=== PATIENT | male | born 1965 | race Caucasian/White ===

== ENCOUNTER 2023-05-22 08:40 | Day surgery (SDC) | payer MEDICARE, MEDICAID, SELFPAY ==
[2023-05-22 08:46] VITALS: BP 155/81; PULSE 60; RESP 18; TEMP 36.8; O2SAT 94
[2023-05-22] MEDS: Tropicam./Phenyleph. (1/2.5%) 5 ML BTL OD ×3 (09:06→09:21)
--- NOTE | 2023-05-22 09:06 | W.ANESPRE ---
General Info Date of Service Date Performed: 05/22/23 Height: 5 ft 9 in Weight: 90.718 kg Body Mass Index (BMI): 29.5 Surgical Procedure: Operation Date: 05/22/23 10:40 Proposed Procedure Side Surgeon p Cataract Extraction with IOL Implant Right Gutierrez Marquez MD Meds Allergies and Home Medications Allergies Allergy/AdvReac Type Severity Reaction Status Date / Time amoxicillin Allergy Intermediate Other (See Unverified 05/20/23 15:04 Comment) diphenhydramine Allergy Intermediate Hallucinati Unverified 05/20/23 15:04 ons fenofibrate Allergy Intermediate Other (See Unverified 05/20/23 15:04 Comment) Penicillins Allergy Intermediate Other (See Unverified 05/20/23 15:04 Comment) Home Medication Medication Instructions Recorded albuterol sulfate 90 mcg/actuation 2 puff inhalation Q4H PRN 05/20/23 aerosol inhaler (Ventolin HFA) amlodipine 10 mg tablet 10 mg PO DAILY 05/20/23 apixaban 5 mg tablet (Eliquis) 5 mg PO BID 05/20/23 atorvastatin 40 mg tablet 40 mg PO DAILY 05/20/23 baclofen 20 mg tablet 20 mg PO BID 05/20/23 cholecalciferol (vitamin D3) 25 50 mcg PO DAILY 05/20/23 mcg (1,000 unit) capsule (Vitamin D3) clopidogrel 75 mg tablet 75 mg PO DIRECTED 05/20/23 cyanocobalamin (vitamin B-12) 1,000 mcg PO DAILY 05/20/23 1,000 mcg tablet (Vitamin B-12) docusate sodium 100 mg capsule 200 mg PO DAILY 05/20/23 furosemide 20 mg tablet 20 mg PO DAILY 05/20/23 icosapent ethyl 1 gram capsule 2 g PO DAILY 05/20/23 (Vascepa) insulin aspart U-100 100 unit/mL 30 - 42 sliding scale dose subcut 05/20/23 (3 mL) subcutaneous pen (Novolog DIRECTED FlexPen U-100 Insulin aspart) insulin degludec 200 unit/mL (3 120 unit subcut DAILY 05/20/23 mL) subcutaneous pen (Tresiba FlexTouch U-200 insulin) levothyroxine 100 mcg tablet 100 mcg PO DAILY 05/20/23 levothyroxine 88 mcg tablet 88 mcg PO DAILY 05/20/23 lisinopril 40 mg tablet 40 mg PO DAILY 05/20/23 loratadine 10 mg tablet 10 mg PO DAILY 05/20/23 metformin 500 mg tablet 500 mg PO DIRECTED 05/20/23 metoprolol tartrate 50 mg tablet 50 mg PO BID 05/20/23 mirabegron 25 mg tablet,extended 25 mg PO DAILY 05/20/23 release 24 hr (Myrbetriq) pantoprazole 40 mg tablet,delayed 40 mg PO DAILY 05/20/23 release Current Visit Medications: Current Medications Generic Name Dose Route Start Last Admin Trade Name Freq PRN Reason Stop Dose Admin Acetaminophen 1,000 mg 05/22/23 06:00 Acetaminophen 500 Mg Tab PO 06/21/23 05:59 Q4H PRN PRN Balanced Salt Solution 500 ml 05/22/23 06:00 Balanced Salt Soln.-Plus 500 Ml Bag OP 06/21/23 05:59 DIRECTED [facility] Miscellaneous Medication 0 ml 05/22/23 06:00 Prednisolone 1%, Moxifloxacin 0.5%, Nepafenac 0.1% 5ml Btl OD 06/21/23 05:59 DIRECTED [facility] Miscellaneous Medication 0 ml 05/22/23 06:00 Tropicam./Phenyleph. (1/2.5%) 5 Ml Btl OD 06/21/23 05:59 DIRECTED [facility] Tetracaine HCl 0 ml 05/21/23 09:00 Tetracaine 0.5% 5 Ml Btl OD 06/20/23 08:59 DIRECTED [facility] PFSH Active Problems Active Problems: Problem Status Onset Code Posterior subcapsular age-related cataract, right eye H25.041 Nuclear age-related cataract, right eye H25.11 Medical History Medical History Acquired dysarthria Acute pancreatitis Acute thoracic back pain Anemia Asthenia Asthma Candidiasis of skin Cerebral infarction Cerebrovascular accident Cholecystitis Chronic constipation Chronic musculoskeletal pain Coronary arteriosclerosis Cytopenia Edema GERD without esophagitis Hemiparesis Hypertensive disorder Hypothyroidism Late effects of cerebrovascular disease Left hemiparesis Mixed hyperlipidemia Pedal edema Postoperative intra-abdominal abscess Respiratory failure Right hemiparesis Sleep pattern disturbance Triplegia Type II diabetes mellitus Vertebrobasilar artery syndrome Vitamin D deficiency Surgical History Surgical History H/O heart artery stent x2 2009 Hx laparoscopic cholecystectomy Tobacco Smoking/Tobacco Use Status: Former Tobacco Use Alcohol Alcohol Intake: never Substance Use Substance use: Never Substance use type: does not use Vital Signs and Lab Results Vital Signs Most Recent Vital Signs in EMR: Most Recent Vital Signs Temp Pulse Resp BP Pulse Ox 36.8 C 60 18 155/81 H 94 05/22/23 08:46 05/22/23 08:46 05/22/23 08:46 05/22/23 08:46 05/22/23 08:46 Lab Results Blood Type / Crossmatch: No Data to Display Complete Blood Count: No Data to Display Complete Metabolic Panel: No Data to Display Liver Function Panel: No Data to Display Coagulation Panel: No Data to Display Cardiac Panel: No Data to Display Arterial Blood Gas: No Data to Display Venous Blood Gas: No Data to Display Pancreas Panel: No Data to Display Thyroid Panel: No Data to Display Infectious Disease: No Data to Display Blood Cultures: No Data to Display Toxicology Panel: No Data to Display Anesthesia Assessment and Plan Anesthesia History Personal History: No History of Anesthesia Complications Family History: No Family History of Anesthesia Complications Exercise Tolerance Exercise Tolerance: Metabolic Equivalents<4 Pertinent Negatives Pertinent Negatives: No Symptoms of GERD and No Major Cardiovascular Symptoms or Complaints Cardiac & Pulmonary Exam Cardiac Exam: Normal S1/S2 Heart Sounds Pulmonary Exam: Rhonchi Present (chronic congestion/cough due to 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) Implantable Cardiac Device Does patient have a Pacemaker or an ICD?: No Airway Exam Known Difficult Airway: No Mallampati Class: 1 Mouth Opening: Normal (> 3cm) Thyromental Distance: Greater than 3 cm Neck Range of Motion: Limited ROM Neck Circumference: Normal Teeth Condition: Removable Dentures/Plates Upper, Removable Dentures/Plates Lower and Edentulous ASA Classification ASA Score: ASA 3 Emergency Case?: No NPO Status NPO Status: NPO Clears >2 hours, Solids >8 hours Anesthesia Plan Resuscitation Status: Full Code Anesthesia Technique: MAC Anesthesia Airway Planned: Natural Airway Monitors Used: Standard Monitors Preoperative Comments:: Blood sugar 298
[2023-05-22 09:37] VITALS: BMI 29.5
[2023-05-22] MEDS: Balanced Salt Soln.-PLUS 500 ML BAG OP (09:51)
[2023-05-22] MEDS: Lidocaine 1% Pres-Free 5 ML VIAL (09:54)
[2023-05-22] MEDS: Duovisc Viscoelastic System EACH 1 EACH (09:54)
[2023-05-22] MEDS: Phenylephrine/Lidocaine (15/10) MG/ML 1 ML VIAL (09:56)
[2023-05-22] MEDS: Povidone-Iodine Ophth 30 ML BTL (09:58)
[2023-05-22 10:14] VITALS: BP 151/79; PULSE 50; RESP 18; TEMP 36.6; O2SAT 97
--- NOTE | 2023-05-22 10:14 | W.PM.DSUDISC ---
Date of service: 05/22/23 Time of Service: 10:14 Discharge Plan Disposition Patient Disposition: Home Discharge Details Attending Provider: Gutierrez Marquez Primary Care Provider: Gokul Oconnor Home Meds and New Rx's Prescriptions: No Action atorvastatin 40 mg tablet 40 mg PO DAILY Patient Comments: TAKE ONE TABLET BY MOUTH EVERY DAY metformin 500 mg tablet 500 mg PO DIRECTED cyanocobalamin (vitamin B-12) [Vitamin B-12] 1,000 mcg tablet 1,000 mcg PO DAILY clopidogrel 75 mg tablet 75 mg PO DIRECTED baclofen 20 mg tablet 20 mg PO BID levothyroxine 100 mcg tablet 100 mcg PO DAILY levothyroxine 88 mcg tablet 88 mcg PO DAILY Patient Comments: TAKE ONE TABLET BY MOUTH EVERY DAY amlodipine 10 mg tablet 10 mg PO DAILY pantoprazole 40 mg tablet,delayed release (DR/EC) 40 mg PO DAILY metoprolol tartrate 50 mg tablet 50 mg PO BID docusate sodium 100 mg capsule 200 mg PO DAILY Patient Comments: TAKE ONE CAPSULE BY MOUTH TWICE A DAY furosemide 20 mg tablet 20 mg PO DAILY Patient Comments: TAKE ONE TABLET BY MOUTH EVERY DAY albuterol sulfate [Ventolin HFA] 90 mcg/actuation Hfa Aerosol Inhaler 2 puff INHALATION Q4H PRN lisinopril 40 mg tablet 40 mg PO DAILY loratadine 10 mg Tablet 10 mg PO DAILY cholecalciferol (vitamin D3) [Vitamin D3] 25 mcg (1,000 unit) capsule 50 mcg PO DAILY Patient Comments: TAKE TWO CAPSULES BY MOUTH EVERY DAY insulin aspart U-100 [Novolog FlexPen U-100 Insulin] 100 unit/mL (3 mL) insulin pen 30 - 42 sliding scale dose SUBCUT DIRECTED Patient Comments: INJECT 30 TO 42 UNITS SUBCUTANEOUSLY THREE TIMES A DAY WITH MEALS Myrbetriq 25 mg tablet extended release 24 hr 25 mg PO DAILY icosapent ethyl [Vascepa] 1 gram Capsule 2 g PO DAILY Eliquis 5 mg tablet 5 mg PO BID insulin degludec [Tresiba FlexTouch U-200] 200 unit/mL (3 mL) insulin pen 120 unit SUBCUT DAILY Patient Comments: INJECT 120 UNITS SUBCUTANEOUSLY DAILY Discharge Instructions Stand Alone Forms: Post-op Topical Cataract, Press Ganey (DSU) Discharge Orders Discharge Orders: Discharge Order (Routine); Ordered 05/22/23 Ordered By: Gutierrez J Jimmy DS: Diagnosis Discharge Diagnosis (1) Posterior subcapsular age-related cataract, right eye: Status: Resolved (2) Nuclear age-related cataract, right eye: Status: Resolved
--- NOTE | 2023-05-22 10:15 | ROE_ITS ---
Date of service: 05/22/23 Time of Service: 10:15 Operative Note Operative Note DATE OF PROCEDURE: 05/22/23 PRE-OP DIAGNOSIS: Nuclear/posterior subcapsular cataract, right eye POST-OP DIAGNOSIS: same PROCEDURE: Cataract extraction using phacoemulsification with intraocular lens implant, right eye SURGEON: Gutierrez Marquez ANESTHESIA TYPE: Local By Surgeon and MAC Refer to Anesthesia Record ESTIMATED BLOOD LOSS: 0 PATHOLOGY: none sent COMPLICATIONS: None Patient was transported to: same day Patient's condition: stable Implants: Joey [employer] Joey Tecnis Eyhance [id number] Indications: Progressive visual loss due to cataract, right eye Procedure Description: CATARACT SURGERY OPERATIVE REPORT PREOPERATIVE DIAGNOSIS: 1. Nuclear/posterior subcapsular cataract, right eye POSTOPERATIVE DIAGNOSIS: Same OPERATION: 1. Cataract extraction using phacoemulsification with posterior chamber intraocular lens implant, right eye. IOL: IOL Building Inspection Engineer/Model: Joey & Joey Tecnis Eyhance [id number] IOL Power: + 19.5 diopters IOL Serial Number: [id number] Optic Diameter: 6.0mm Haptic/Overall Diameter: 13.0mm PHACO INFO: Amandeep [employer] Vision System with OZil and Active [employer]uidics Cumulative Dispersed Energy (CDE): 11.26 seconds SURGEON: Gutierrez Marquez MD, OLRE ANESTHESIA: Monitored Anesthesia Care (MAC), with local sub-tenon's anesthetic infiltration COMPLICATIONS: None SPECIMENS: None INDICATIONS FOR PROCEDURE: The patient is a 57-year-old male with history of diminished visual acuity in his right eye secondary to the development of nuclear and posterior subcapsular cataract. He is significantly symptomatic that he desires cataract surgery and attempt to improve and maximize his vision. See office notes for detailed information. PROCEDURE: The correct surgical eye was identified and marked as the right eye and the pupil was dilated in the preoperative area using mydriatics and cycloplegics. The dilated pupil size was 6.0 mm. The patient elected to proceed without oral sedation. The patient was brought to the operating room where cardiopulmonary monitoring was instituted and surgical time-out was performed, confirming the correct operative eye and IOL power. Topical anesthesia was administered and ophthalmic povidone-iodine 5% was instilled into the conjunctival fornices. The dakota-ocular area was prepped with Betadine 10% solution and draped in the usual sterile fashion for intraocular surgery, including an aperture drape. A Tegaderm transparent film dressing was cut in half and used to cover the lashes and lid margins. Care was taken to sequester the lashes and lid margins under the Tegaderm dressing. A lid speculum was placed between the lids of the operative eye and the Amandeep [employer] Revalia operating microscope was maneuvered into position. Matt scissors were then used to make a conjunctival buttonhole approximately 6mm posterior to the limbus in the inferonasal quadrant. Blunt dissection was carried out to expose bare sclera, and a blunt-tipped sub-tenon?s anesthesia cannula was introduced and passed posteriorly along the globe where non- preserved plain lidocaine was injected into posterior sub-Tenon?s space. A sideport knife was used to make a paracentesis port. Intraocular phenylephrine/lidocaine was injected into the anterior chamber. The anterior chamber was filled with viscoelastic. A keratome knife was used to construct a 2-plane clear corneal tunnel extending 2.0mm into clear cornea. A flap was raised on the anterior capsule and capsulorhexis forceps were used to complete a continuous curvilinear capsulorhexis of 5.0 mm. Balanced salt solution was then used to perform cortical cleaving hydrodissection and nuclear hydrodelineation until the lens could be freely rotated within the capsular bag. The lens nucleus was then disassembled and r emoved within the capsular bag and iris plane using phacoemulsification. There was a moderate amount of posterior pressure, additional dispersive viscoelastic was injected into the anterior chamber intermittently to protect the corneal endothelium. Residual cortical material was removed using the I/A handpiece. The posterior capsule was carefully polished to remove as much residual lens epithelial cells as safely possible. The capsular bag was then inflated and the anterior chamber deepened with cohesive viscoelastic. The lens implant described above was inserted into the capsular bag using the Joey and Meliton Simplicity pre-loaded injector. A Kuglen hook was used to dial the IOL into position. Residual viscoelastic was then removed first from posterior to the IOL, then from the anterior chamber using the I/A handpiece. The lens implant was noted to center nicely within the capsular bag. The incisions were stromally hydrated, and the anterior chamber was reformed using BSS. Then 0.5cc of moxifloxacin 1.0mg/ml were injected into the capsular bag and anterior chamber. The incisions were checked with a Weck spear and found to be secure. Several drops of ophthalmic povidone-iodine 5% were then applied to the eye followed by two drops of Imprimis combination prednisolone/moxifloxacin/nepafenac solution. The drapes were removed and a clear plastic protective eye shield was placed over the eye. The patient was then returned to [facility] Day Surgery in stable condition.
--- NOTE | 2023-05-22 10:52 | W.ANESPOSTOP ---
Postoperative Evaluation Date, Time and Location Date Performed: 05/22/23 Time Performed: 10:16 Patient Location: Day Surgery Unit Vital Signs Most Recent Imported Vital Signs: Most Recent Vital Signs Temp Pulse Resp BP Pulse Ox 36.6 C 50 L 18 151/79 H 97 05/22/23 10:14 05/22/23 10:14 05/22/23 10:14 05/22/23 10:14 05/22/23 10:14 Pain Score Most Recent Pain Score: Most Recent Pain Score Pain Level 0 05/22/23 10:14 Assessment Mental Status: Awake (Alert & Oriented to Patient Baseline) Airway and Respiratory Function: Patent airway with normal (patient baseline) respiratory exam Cardiovascular Function: Hemodynamically Stable Hydration Status: Adequately Hydrated Nausea & Vomiting: No Nausea or Vomiting Pain: Pt. Denies Any Pain Peripheral Nerve Block: Patient did not receive a nerve block
== END 2023-05-22 10:40 | disposition home or self-care (01) ==
LOC: SUR 08:43
PROVIDERS: PCP Orthopaedic Surgery Adult Reconstructive Orthopaedic Surgery; Visit Provider Ophthalmology
PROC: (CPT 66984; principal; 2023-05-22 10:30)
DX: H25.041 Posterior subcapsular polar age-related cataract, right eye (principal); H25.11 Age-related nuclear cataract, right eye; K21.9 Gastro-esophageal reflux disease without esophagitis
CPT/HCPCS: 66984; V2632

== ENCOUNTER 2024-05-09 18:22 | Outpatient (REF) | payer SELFPAY ==
[2024-05-09 20:13] LABS: Abs Immature Grans 0.02 10^3/uL (0.0-0.06); Absolute Basophil Count 0.09 10^3/uL (0.0-0.2); Absolute Eosinophil Count 0.46 10^3/uL (0.0-0.7); Absolute Lymphocyte Count 0.76 10^3/uL (1.2-3.4); Absolute Monocyte Count 0.47 10^3/uL (0.1-0.8); Absolute Neutrophil Count 3.57 10^3/uL (1.2-6.7); Basophils % 1.7 %; Eosinophils % 8.6 %; HCT 34.5 % (40.0-50.0); Immature Grans % 0.4 %; Lymphocytes % 14.2 %; MCH 31.3 pg (27.0-33.0); MCHC 31.9 % (32.0-36.0); MCV 98 fL (80-95); MPV 9.5 fL (8.0-11.0); Monocytes % 8.8 %; Neutrophils % 66.3 %; Platelet Count 144 10^3/uL (130-400); RBC 3.51 10^6/uL (4.36-5.78); RDW 17.1 % (11.8-14.1); RDW-SD 62.5 fL; WBC 5.37 10^3/uL (4.4-10.8)
[2024-05-09 20:50] LABS: Hemoglobin A1C 5.7 % (<5.7)
[2024-05-09 21:29] LABS: Iron 37 ug/dL (65-175); Total Iron Binding Capacity 222 ug/dL (250-450); Transferrin Sat 17 % (20-55)
[2024-05-09 21:57] LABS: ALT 42 U/L (16-63); AST 31 U/L (15-37); Albumin 3.4 g/dL (3.4-5.0); Alkaline Phosphatase 290 U/L (46-116); BUN 57 mg/dL (7-18); Bilirubin, Total 0.81 mg/dL (0.2-1.0); CREATININE 2.6 mg/dL (0.70-1.30); Calcium 9.5 mg/dL (8.5-10.1); Chloride 98 mmol/L (98-107); Estimated GFR 27.72 (mL/min/1.73m2); Ferritin 527 ng/mL (26-388); Glucose 139 mg/dL (74-106); Magnesium 2.2 mg/dL (1.8-2.4); Potassium 4.7 mmol/L (3.5-5.1); Sodium 138 mmol/L (136-145); TSH (W/Ref FT4) 1.18 uIU/mL (0.36-3.74); Total Protein 6.8 g/dL (6.4-8.2); Vitamin B12 916 pg/mL (193-986); Vitamin D 25 Total 33.5 ng/mL (30-100)
[2024-05-09 21:58] LABS: Folate > 20.0 ng/mL (8.6-20.0)
[2024-05-09 22:30] LABS: NT-proBNP 9697 pg/mL (<300)
== END 2024-05-09 18:23 | disposition home or self-care (01) ==
LOC: LBN 18:22
PROVIDERS: PCP Orthopaedic Surgery Adult Reconstructive Orthopaedic Surgery; Visit Provider Nurse Practitioner Gerontology
DX: R73.09 Other abnormal glucose (principal)
CPT/HCPCS: 80053; 82306; 82607; 82728; 82746; 83036; 83540; 83550; 83735; 83880; 84443; 85025

== ENCOUNTER 2024-05-19 18:27 | Outpatient (REF) | payer SELFPAY ==
[2024-05-19 20:50] LABS: Abs Immature Grans 0.01 10^3/uL (0.0-0.06); Absolute Basophil Count 0.09 10^3/uL (0.0-0.2); Absolute Eosinophil Count 0.63 10^3/uL (0.0-0.7); Absolute Lymphocyte Count 0.89 10^3/uL (1.2-3.4); Absolute Monocyte Count 0.41 10^3/uL (0.1-0.8); Absolute Neutrophil Count 3.43 10^3/uL (1.2-6.7); Basophils % 1.6 %; Eosinophils % 11.5 %; HCT 30.3 % (40.0-50.0); HGB 10.1 g/dL (13.5-17.5); Immature Grans % 0.2 %; Lymphocytes % 16.3 %; MCH 30.9 pg (27.0-33.0); MCHC 33.3 % (32.0-36.0); MCV 93 fL (80-95); MPV 9.7 fL (8.0-11.0); Monocytes % 7.5 %; Neutrophils % 62.9 %; Platelet Count 193 10^3/uL (130-400); RBC 3.27 10^6/uL (4.36-5.78); RDW 15.9 % (11.8-14.1); RDW-SD 53.6 fL; WBC 5.46 10^3/uL (4.4-10.8)
[2024-05-19 21:06] LABS: ALT 62 U/L (16-63); AST 45 U/L (15-37); Albumin 3.4 g/dL (3.4-5.0); Alkaline Phosphatase 310 U/L (46-116); Anion Gap 4.9 mmol/L (3-11); BUN 27 mg/dL (7-18); Bilirubin, Total 0.73 mg/dL (0.2-1.0); CO2 33.1 mmol/L (21.0-32.0); Calcium 9.7 mg/dL (8.5-10.1); Chloride 99 mmol/L (98-107); Estimated GFR 37.97 (mL/min/1.73m2); Glucose 71 mg/dL (74-106); NT-proBNP 6921 pg/mL (<300); Potassium 3.9 mmol/L (3.5-5.1); Sodium 137 mmol/L (136-145); Total Protein 6.8 g/dL (6.4-8.2)
== END 2024-05-19 18:28 | disposition home or self-care (01) ==
LOC: LBN 18:27
PROVIDERS: PCP Orthopaedic Surgery Adult Reconstructive Orthopaedic Surgery; Visit Provider Nurse Practitioner Gerontology
DX: I13.2 Hypertensive heart and chronic kidney disease with heart failure and with stage 5 chronic kidney disease, or end stage renal disease (principal)
CPT/HCPCS: 80053; 83880; 85025

== ENCOUNTER 2024-05-30 19:22 | Outpatient (REF) | payer SELFPAY ==
[2024-05-30 19:42] LABS: Abs Immature Grans 0.01 10^3/uL (0.0-0.06); Absolute Basophil Count 0.06 10^3/uL (0.0-0.2); Absolute Eosinophil Count 0.45 10^3/uL (0.0-0.7); Absolute Lymphocyte Count 0.61 10^3/uL (1.2-3.4); Absolute Monocyte Count 0.42 10^3/uL (0.1-0.8); Absolute Neutrophil Count 3.18 10^3/uL (1.2-6.7); Basophils % 1.3 %; Eosinophils % 9.5 %; HCT 29.8 % (40.0-50.0); HGB 10.1 g/dL (13.5-17.5); Immature Grans % 0.2 %; Lymphocytes % 12.9 %; MCH 31.4 pg (27.0-33.0); MCHC 33.9 % (32.0-36.0); MCV 93 fL (80-95); Monocytes % 8.9 %; Neutrophils % 67.2 %; Platelet Count 129 10^3/uL (130-400); RBC 3.22 10^6/uL (4.36-5.78); RDW-SD 53.8 fL; WBC 4.73 10^3/uL (4.4-10.8)
[2024-05-30 20:05] LABS: ALT 47 U/L (16-63); AST 40 U/L (15-37); Albumin 3.5 g/dL (3.4-5.0); Alkaline Phosphatase 220 U/L (46-116); Anion Gap 3.7 mmol/L (3-11); BUN 11 mg/dL (7-18); Bilirubin, Total 1.03 mg/dL (0.2-1.0); CO2 33.3 mmol/L (21.0-32.0); CREATININE 1.2 mg/dL (0.70-1.30); Calcium 9.3 mg/dL (8.5-10.1); Chloride 99 mmol/L (98-107); Glucose 95 mg/dL (74-106); NT-proBNP 11318 pg/mL (<300); Potassium 3.8 mmol/L (3.5-5.1); Sodium 136 mmol/L (136-145); Total Protein 7.1 g/dL (6.4-8.2)
== END 2024-05-30 19:23 | disposition home or self-care (01) ==
LOC: LBN 19:22
PROVIDERS: PCP Orthopaedic Surgery Adult Reconstructive Orthopaedic Surgery; Visit Provider Nurse Practitioner Gerontology
DX: I50.43 Acute on chronic combined systolic (congestive) and diastolic (congestive) heart failure (principal)
CPT/HCPCS: 80053; 83880; 85025

== ENCOUNTER 2024-06-02 18:03 | Outpatient (REF) | payer MEDICARE, MEDICAID, SELFPAY ==
[2024-06-02 18:36] LABS: Abs Immature Grans 0.01 10^3/uL (0.0-0.06); Absolute Basophil Count 0.08 10^3/uL (0.0-0.2); Absolute Eosinophil Count 0.61 10^3/uL (0.0-0.7); Absolute Lymphocyte Count 0.84 10^3/uL (1.2-3.4); Absolute Monocyte Count 0.53 10^3/uL (0.1-0.8); Absolute Neutrophil Count 2.73 10^3/uL (1.2-6.7); Basophils % 1.7 %; Eosinophils % 12.7 %; HGB 9.8 g/dL (13.5-17.5); Immature Grans % 0.2 %; Lymphocytes % 17.5 %; MCH 31.7 pg (27.0-33.0); MCHC 32.7 % (32.0-36.0); MPV 9.7 fL (8.0-11.0); Neutrophils % 56.9 %; Platelet Count 134 10^3/uL (130-400); RBC 3.09 10^6/uL (4.36-5.78); RDW 16.7 % (11.8-14.1); RDW-SD 58.5 fL
[2024-06-02 18:41] LABS: MCV 97 fL (80-95)
[2024-06-02 19:03] LABS: ALT 40 U/L (16-63); AST 30 U/L (15-37); Albumin 3.4 g/dL (3.4-5.0); Alkaline Phosphatase 211 U/L (46-116); Anion Gap 6.2 mmol/L (3-11); BUN 24 mg/dL (7-18); Bilirubin, Total 0.71 mg/dL (0.2-1.0); CO2 31.8 mmol/L (21.0-32.0); CREATININE 1.9 mg/dL (0.70-1.30); Calcium 10.2 mg/dL (8.5-10.1); Chloride 99 mmol/L (98-107); Estimated GFR 40.38 (mL/min/1.73m2); Glucose 114 mg/dL (74-106); NT-proBNP 9700 pg/mL (<300); Potassium 4.2 mmol/L (3.5-5.1); Sodium 137 mmol/L (136-145); Total Protein 6.9 g/dL (6.4-8.2)
== END 2024-06-02 18:04 | disposition home or self-care (01) ==
LOC: LBN 18:03
PROVIDERS: PCP Orthopaedic Surgery Adult Reconstructive Orthopaedic Surgery; Visit Provider Nurse Practitioner Gerontology
DX: J18.9 Pneumonia, unspecified organism (principal); I50.9 Heart failure, unspecified
CPT/HCPCS: 80053; 83880; 85025

== ENCOUNTER 2024-06-03 00:52 | Outpatient (REF) | payer SELFPAY ==
--- NOTE | 2024-06-03 | DI.RAD_ITS ---
Exam(s) XR CHEST 2V PA LATERAL EXAM: XR CHEST 2V PA LATERAL CLINICAL HISTORY: PULMONARY EDEMA,ASPIRATION TECHNIQUE: 2D digital imaging was performed. Two views. COMPARISON: No exams were available for comparison FINDINGS: HEART: Normal size. Central venous catheter with tip in right atrium. Cardiac monitoring device Aorta: No mildly tortuous. PULMONARY VASCULATURE: Normal. MEDIASTINUM: Unremarkable. LUNGS: Clear. No evidence of pulmonary edema or focal infiltrate. PLEURAL SPACE: No pleural effusion or pneumothorax. BONE:Unremarkable for age. SOFT TISSUES: Unremarkable. IMPRESSION: No acute abnormality. DATA REPOSITORY: RADIATION DOSE DELIVERED:
== END 2024-06-03 01:12 ==
LOC: DI 00:52
PROVIDERS: PCP Orthopaedic Surgery Adult Reconstructive Orthopaedic Surgery; Visit Provider Nurse Practitioner Gerontology
DX: R91.8 Other nonspecific abnormal finding of lung field (principal)
CPT/HCPCS: 71046

== ENCOUNTER 2024-06-03 15:02 | Outpatient (REF) | payer MEDICARE, MEDICAID, SELFPAY ==
[2024-06-03 08:30] LABS: CREATININE 2.3 mg/dL (0.70-1.30); Estimated GFR 32.11 (mL/min/1.73m2); Potassium 3.9 mmol/L (3.5-5.1)
== END 2024-06-03 15:03 | disposition home or self-care (01) ==
LOC: LBN 15:02
PROVIDERS: PCP Orthopaedic Surgery Adult Reconstructive Orthopaedic Surgery; Visit Provider Internal Medicine Nephrology
DX: N17.9 Acute kidney failure, unspecified (principal)
CPT/HCPCS: 82565; 84132

== ENCOUNTER 2024-06-06 11:36 | Outpatient (REF) | payer SELFPAY ==
[2024-06-06 08:19] LABS: CREATININE 2.4 mg/dL (0.70-1.30); Estimated GFR 30.51 (mL/min/1.73m2); Potassium 4.3 mmol/L (3.5-5.1)
== END 2024-06-06 11:37 | disposition home or self-care (01) ==
LOC: LBN 11:36
PROVIDERS: PCP Orthopaedic Surgery Adult Reconstructive Orthopaedic Surgery; Visit Provider Internal Medicine Nephrology
DX: N17.9 Acute kidney failure, unspecified (principal)
CPT/HCPCS: 82565; 84132

== ENCOUNTER 2024-06-08 16:12 | Outpatient (REF) | payer MEDICARE, MEDICAID, SELFPAY ==
[2024-06-08 09:00] LABS: Calcium 10.3 mg/dL (8.5-10.1); Potassium 4.3 mmol/L (3.5-5.1)
[2024-06-08 09:30] LABS: CREATININE 2.6 mg/dL (0.70-1.30); Estimated GFR 27.72 (mL/min/1.73m2)
== END 2024-06-08 16:13 | disposition home or self-care (01) ==
LOC: LBN 16:12
PROVIDERS: PCP Orthopaedic Surgery Adult Reconstructive Orthopaedic Surgery; Visit Provider Internal Medicine Nephrology
DX: N17.9 Acute kidney failure, unspecified (principal)
CPT/HCPCS: 82310; 82565; 84132

== ENCOUNTER 2024-06-13 18:20 | Outpatient (REF) | payer MEDICARE, MEDICAID, SELFPAY ==
[2024-06-13 19:42] LABS: ALT 69 U/L (16-63); AST 46 U/L (15-37); Albumin 3.6 g/dL (3.4-5.0); Alkaline Phosphatase 260 U/L (46-116); Anion Gap 7.1 mmol/L (3-11); Bilirubin, Total 0.65 mg/dL (0.2-1.0); CO2 30.9 mmol/L (21.0-32.0); CREATININE 2.9 mg/dL (0.70-1.30); Calcium 10.5 mg/dL (8.5-10.1); Chloride 96 mmol/L (98-107); Estimated GFR 24.31 (mL/min/1.73m2); Glucose 159 mg/dL (74-106); NT-proBNP 9312 pg/mL (<300); Potassium 4.5 mmol/L (3.5-5.1); Sodium 134 mmol/L (136-145); Total Protein 7.3 g/dL (6.4-8.2)
[2024-06-13 19:53] LABS: BUN 93 mg/dL (7-18)
== END 2024-06-13 18:21 | disposition home or self-care (01) ==
LOC: LBN 18:20
PROVIDERS: PCP Orthopaedic Surgery Adult Reconstructive Orthopaedic Surgery; Visit Provider Nurse Practitioner Gerontology
DX: I50.43 Acute on chronic combined systolic (congestive) and diastolic (congestive) heart failure (principal)
CPT/HCPCS: 80053; 83880

== ENCOUNTER → 2024-07-04 08:51 | Outpatient (BNVA) | payer MEDICARE, MEDICAID, SELFPAY | PROVIDERS: PCP Orthopaedic Surgery Adult Reconstructive Orthopaedic Surgery; Referring Provider Orthopaedic Surgery Adult Reconstructive Orthopaedic Surgery; Visit Provider Surgery | DX: I26.99 Other pulmonary embolism without acute cor pulmonale; D69.6 Thrombocytopenia, unspecified; E11.9 Type 2 diabetes mellitus without complications; N18.5 Chronic kidney disease, stage 5; Z99.2 Dependence on renal dialysis | CPT/HCPCS: 36590; 99205 ==

== ENCOUNTER 2024-07-04 20:04 | Outpatient (REF) | payer MEDICARE, MEDICAID, SELFPAY ==
[2024-07-04 21:42] LABS: ALT 127 U/L (16-63); AST 61 U/L (15-37); Albumin 4.1 g/dL (3.4-5.0); Alkaline Phosphatase 300 U/L (46-116); Anion Gap 13.1 mmol/L (3-11); Bilirubin, Total 0.68 mg/dL (0.2-1.0); CO2 27.9 mmol/L (21.0-32.0); CREATININE 2.9 mg/dL (0.70-1.30); Calcium 10.9 mg/dL (8.5-10.1); Chloride 101 mmol/L (98-107); Estimated GFR 24.16 (mL/min/1.73m2); Glucose 154 mg/dL (74-106); Magnesium 2.8 mg/dL (1.8-2.4); Potassium 4.1 mmol/L (3.5-5.1); Sodium 142 mmol/L (136-145)
[2024-07-04 21:50] LABS: BUN 105 mg/dL (7-18)
== END 2024-07-04 20:05 | disposition home or self-care (01) ==
LOC: LBN 20:04
PROVIDERS: PCP Orthopaedic Surgery Adult Reconstructive Orthopaedic Surgery; Visit Provider Nurse Practitioner Gerontology
DX: Z78.9 Other specified health status (principal); I26.99 Other pulmonary embolism without acute cor pulmonale; D69.6 Thrombocytopenia, unspecified; E11.9 Type 2 diabetes mellitus without complications
CPT/HCPCS: 80053; 83735

== ENCOUNTER 2024-07-18 18:57 | Outpatient (REF) | payer MEDICARE, MEDICAID, SELFPAY ==
[2024-07-18 20:18] LABS: ALT 145 U/L (16-63); AST 78 U/L (15-37); Albumin 3.6 g/dL (3.4-5.0); Alkaline Phosphatase 327 U/L (46-116); Anion Gap 13.4 mmol/L (3-11); Bilirubin, Total 0.67 mg/dL (0.2-1.0); CO2 24.6 mmol/L (21.0-32.0); CREATININE 2.6 mg/dL (0.70-1.30); Calcium 9.1 mg/dL (8.5-10.1); Chloride 105 mmol/L (98-107); Estimated GFR 27.55 (mL/min/1.73m2); Glucose 143 mg/dL (74-106); Potassium 5.5 mmol/L (3.5-5.1); Sodium 143 mmol/L (136-145); Total Protein 7.5 g/dL (6.4-8.2)
[2024-07-18 20:37] LABS: BUN 85 mg/dL (7-18)
== END 2024-07-18 18:58 | disposition home or self-care (01) ==
LOC: LBN 18:57
PROVIDERS: PCP Orthopaedic Surgery Adult Reconstructive Orthopaedic Surgery; Visit Provider Nurse Practitioner Gerontology
DX: E83.52 Hypercalcemia (principal)
CPT/HCPCS: 80053

== ENCOUNTER 2024-07-21 17:59 | Outpatient (REF) | payer MEDICARE, MEDICAID, SELFPAY ==
[2024-07-21 18:33] LABS: ALT 165 U/L (16-63); AST 77 U/L (15-37); Albumin 3.6 g/dL (3.4-5.0); Alkaline Phosphatase 333 U/L (46-116); Anion Gap 11.4 mmol/L (3-11); BUN 76 mg/dL (7-18); Bilirubin, Total 0.77 mg/dL (0.2-1.0); CO2 25.6 mmol/L (21.0-32.0); CREATININE 2.6 mg/dL (0.70-1.30); Calcium 9.4 mg/dL (8.5-10.1); Chloride 105 mmol/L (98-107); Estimated GFR 27.55 (mL/min/1.73m2); Glucose 121 mg/dL (74-106); Potassium 5.1 mmol/L (3.5-5.1); Sodium 142 mmol/L (136-145); Total Protein 7.6 g/dL (6.4-8.2)
== END 2024-07-21 18:00 | disposition home or self-care (01) ==
LOC: LBN 17:59
PROVIDERS: PCP Orthopaedic Surgery Adult Reconstructive Orthopaedic Surgery; Visit Provider Nurse Practitioner Gerontology
DX: E87.5 Hyperkalemia (principal); R79.89 Other specified abnormal findings of blood chemistry
CPT/HCPCS: 80053